=== PATIENT | male | born 1955 | race Caucasian/White ===

== ENCOUNTER → 2017-06-04 | Outpatient (CLI) | payer MEDICARE, OTHER ==
[~2017-06-04] MED LIST: ASPIR 8181 M1 PO; BACLOFEN10 MG PO; BENICAR HCT 401 EAC1 PO; BENZTROPINE ME0.5 MG PO; CREON 241 CAPSULE PO; ENULOSE10 GM/15 M PO; FLONASE16 G1 BOTH NARES; FLOVENT DISKUS1 DIS2 IH; FLUOXETINE HCL10 MG PO; GENTLELAX119 GM PO; GLIMEPIRIDE4 MG PO; JANUVIA25 M1 PO; LANTUS 3 M100 UNITS1 SQ; LIPITOR40 MG PO; LORAZEPAM0.5 MG PO; LOVAZA1 GM PO; LYRICA200 MG PO; MAGNESIUM400 M1 PO; METAMUCIL FIBE3.4 GM PO; METOPROLOL TAR100 MG PO; PRILOSEC20 MG PO; SALINE NASAL SP45 ML BOTH NARES; TESTOSTERO200 MG/11 IM; TOPIRAMATE25 MG PO; ULORIC80 MG PO; VITAMIN D31000 UNIT PO; VOLTAREN 1% GE100 GM PO
== END | disposition home or self-care (01) ==
LOC: CDC 11:54
DX: Z01.810 Encounter for preprocedural cardiovascular examination (principal); M47.27 Other spondylosis with radiculopathy, lumbosacral region; I44.0 Atrioventricular block, first degree; R94.31 Abnormal electrocardiogram [ECG] [EKG]
CPT/HCPCS: 93000

== ENCOUNTER 2017-06-22 15:24 | Inpatient (IN) | payer OTHER ==
[~2017-06-22] VITALS: Ht 188 cm; Wt 125.8 kg
[~2017-06-22 15:24] MED LIST changes: -ASPIR 8181 M1 PO; -BACLOFEN10 MG PO; -BENZTROPINE ME0.5 MG PO; -FLONASE16 G1 BOTH NARES; -GLIMEPIRIDE4 MG PO; -LORAZEPAM0.5 MG PO; -LYRICA200 MG PO; -MAGNESIUM400 M1 PO; -VITAMIN D31000 UNIT PO
[2017-06-22 17:02] LABS: BASOPHIL (%) 0.5 % (0-1); BASOPHIL COUNT 0.1 K/uL (0-0.1); EOSINOPHIL (%) 0.9 % (0-5); EOSINOPHIL COUNT 0.2 K/uL (0-0.3); HEMATOCRIT 44.1 % (38.0-50.0); HEMOGLOBIN 14.9 G/DL (12.5-16.6); IMMATURE GRANULOCYTE (%) 0.7 % (0.0-0.7); LYMPHOCYTE (%) 5.2 % (15-42); MCH 29.9 PG (29.0-34.0); MCHC 33.8 G/DL (30.0-36.0); MCV 88.6 FL (86-99); MONOCYTE (%) 7.8 % (3-12); MONOCYTE COUNT 1.6 K/uL (0-0.8); NEUTROPHIL (%) 84.9 % (45-76); NEUTROPHIL COUNT 16.9 K/uL (1.8-6.4); PLATELET COUNT 150 K/uL (156-360); RBC DIS.WIDTH-SD 44.6 % (39-53); RED BLOOD COUNT 4.98 M/uL (4.00-5.50); WHITE BLOOD COUNT 19.9 K/uL (4.1-10.2)
[2017-06-22 17:12] LABS: ALBUMIN 3.3 g/dL (3.2-4.8); CHLORIDE 99 mEq/L (99-109); POTASSIUM 3.7 mEq/L (3.7-5.4); SODIUM 132 mEq/L (136-147)
[2017-06-22 17:14] LABS: GLUCOSE 117 mg/dL (70-99); TOTAL PROTEIN 6.5 g/dL (6.4-8.3)
[2017-06-22 17:16] LABS: TOTAL BILIRUBIN 2.7 mg/dL (0.0-1.0)
[2017-06-22 17:18] LABS: ALKALINE PHOSPHATASE 115 IU/L (3-129); CREATININE 1.7 mg/dL (0.6-1.3); GFR ESTIMATE (CALCULATED) 44 mL/min/ (58.99-99999)
[2017-06-22 17:19] LABS: UREA NITROGEN (BUN) 14 mg/dL (9-23)
[2017-06-22 17:20] LABS: AST (GOT) 17 IU/L (2-34)
[2017-06-22 17:21] LABS: ALT (GPT) 15 IU/L (3-49)
[2017-06-22] MEDS ORDERED: OMEPRAZOLE20 MG PO (17:54)
[2017-06-22] MEDS ORDERED: LEVOTHYROXINE75 MCG PO (17:54)
[2017-06-22] MEDS ORDERED: BACTRIM,SEPT1 TABLET PO (17:54)
[2017-06-22] MEDS ORDERED: ALLOPURINOL300 MG PO (17:56)
[2017-06-22] MEDS ORDERED: VALSARTAN-HCTZ1 EAC3 PO (17:56)
[2017-06-22] MEDS ORDERED: SOLIQUA 100 UNIT3 ML SC (17:57)
[2017-06-22] MEDS ORDERED: JANUVIA100 MG PO (17:58)
[2017-06-22] MEDS ORDERED: TRAMADOL HCL50 MG PO (18:00)
[2017-06-22] MEDS ORDERED: METOPROLOL SUC100 MG PO (18:02)
[2017-06-22] MEDS ORDERED: ATORVASTATIN CA40 MG PO (18:03)
[2017-06-22] MEDS ORDERED: AMITIZA8 MICROGRA PO (18:05)
[2017-06-22] MEDS ORDERED: OMEGA-3 ACID ETH1 GM PO (18:06)
[2017-06-22] MEDS ORDERED: TESTOSTERO200 MG/12 IM (18:08)
[2017-06-22] MEDS ORDERED: HYDROCODON-ACE1 EAC7 PO (18:10)
[2017-06-22] MEDS ORDERED: MAGNESIUM400 M1 PO (18:15)
[2017-06-22] MEDS ORDERED: ASPIR 8181 M1 PO (18:15)
[2017-06-22] MEDS ORDERED: GLIMEPIRIDE4 MG PO (18:15)
[2017-06-22] MEDS ORDERED: FLONASE16 G1 BOTH NARES (18:16)
[2017-06-22] MEDS ORDERED: BENZTROPINE ME0.5 MG PO (18:16)
[2017-06-22] MEDS ORDERED: BACLOFEN10 MG PO (18:17)
[2017-06-22] MEDS ORDERED: LORAZEPAM0.5 MG PO (18:17)
[2017-06-22] MEDS ORDERED: LYRICA200 MG PO (18:20)
[2017-06-22] MEDS ORDERED: VITAMIN D31000 UNIT PO (18:20)
[2017-06-22 20:20] VITALS: BP 124/71
[2017-06-22 23:58] VITALS: BP 113/64
[2017-06-23 03:44] VITALS: BP 110/60
[2017-06-23 07:22] VITALS: BP 110/64
[2017-06-23 11:59] VITALS: BP 112/65
[2017-06-23 12:24] VITALS: BP 112/65
[2017-06-23 16:32] VITALS: BP 115/62
[2017-06-24] VITALS: BP 144/71
[2017-06-24 00:16] VITALS: BP 144/71
[2017-06-24 07:55] VITALS: BP 122/68
[2017-06-24 15:17] VITALS: BP 110/56
[2017-06-24 22:19] LABS: VANCOMYCIN, TROUGH 29.7 MCG/ML (10-20)
[2017-06-24 22:20] LABS: CREATININE 2.2 MG/DL (0.6-1.3)
[2017-06-24 23:58] VITALS: BP 106/57
[2017-06-25 08:37] VITALS: BP 139/65
[2017-06-25 16:52] VITALS: BP 136/72
[2017-06-26] VITALS: BP 133/75
[2017-06-26 00:21] VITALS: BP 133/75
[2017-06-26 07:50] VITALS: BP 147/71
[2017-06-26 15:24] VITALS: BP 142/82
== END 2017-06-26 16:45 | disposition home or self-care (01) | DRG 863 ==
LOC: EME 15:24 → EDOF 17:07 → 3EAST 17:07 → ENRESERV 17:20 → 3EAST 19:48
PROVIDERS: Neurological Surgery
PROC: 0H96XZZ Drainage of Back Skin, External Approach (ICD-10-PCS; principal; 2017-06-23)
PROC: 02HV33Z Insertion of Infusion Device into Superior Vena Cava, Percutaneous Approach (ICD-10-PCS; principal; 2017-06-23)
DX: T81.4XXA Infection following a procedure, initial encounter (principal); E66.9 Obesity, unspecified; J44.9 Chronic obstructive pulmonary disease, unspecified; F32.9 Major depressive disorder, single episode, unspecified; E78.00 Pure hypercholesterolemia, unspecified; F41.9 Anxiety disorder, unspecified; M10.9 Gout, unspecified; I12.9 Hypertensive chronic kidney disease with stage 1 through stage 4 chronic kidney disease, or unspecified chronic kidney disease; N18.9 Chronic kidney disease, unspecified; E11.22 Type 2 diabetes mellitus with diabetic chronic kidney disease; M54.9 Dorsalgia, unspecified; Z79.4 Long term (current) use of insulin; Z88.8 Allergy status to other drugs, medicaments and biological substances; Z85.528 Personal history of other malignant neoplasm of kidney; A49.01 Methicillin susceptible Staphylococcus aureus infection, unspecified site; Z88.1 Allergy status to other antibiotic agents; Z68.35 Body mass index [BMI] 35.0-35.9, adult; Z80.6 Family history of leukemia; Z82.49 Family history of ischemic heart disease and other diseases of the circulatory system; Z79.82 Long term (current) use of aspirin
CPT/HCPCS: 36415; 76937; 80053; 80202; 81003; 82565; 82948; 83605; 85025; 85025 GA; 85651; 86140; 87040; 87070; 87075; 87077; 87086; 87147; 87186; 87205; 90686; 99281; 99285; J0330; J0690; J0696; J1815; J1885; J2250; J2270; J2405; J3010; J3370; J3480; J7040; J7050; S0032

== ENCOUNTER → 2017-07-09 | Outpatient (CLI) | payer OTHER ==
[~2017-07-09] MED LIST changes: +ALLOPURINOL300 MG PO; +AMITIZA8 MICROGRA PO; +ASPIR 8181 M1 PO; +ATORVASTATIN CA40 MG PO; +BACLOFEN10 MG PO; +BACTRIM,SEPT1 TABLET PO; +BENZTROPINE ME0.5 MG PO; +FLONASE16 G1 BOTH NARES; +GLIMEPIRIDE4 MG PO; +HYDROCODON-ACE1 EAC7 PO; +JANUVIA100 MG PO; +LEVOTHYROXINE75 MCG PO; +LORAZEPAM0.5 MG PO; +LYRICA200 MG PO; +MAGNESIUM400 M1 PO; +METOPROLOL SUC100 MG PO; +OMEGA-3 ACID ETH1 GM PO; +OMEPRAZOLE20 MG PO; +SOLIQUA 100 UNIT3 ML SC; +TESTOSTERO200 MG/12 IM; +TRAMADOL HCL50 MG PO; +VALSARTAN-HCTZ1 EAC3 PO; +VITAMIN D31000 UNIT PO
== END | disposition home or self-care (01) ==
LOC: EEG 10:00
DX: R40.4 Transient alteration of awareness (principal)
CPT/HCPCS: 95819

== ENCOUNTER 2017-07-14 12:16 | Emergency (ER) | payer OTHER ==
[~2017-07-14] VITALS: Ht 188 cm; Wt 125.9 kg
[2017-07-14 14:48] VITALS: BP 149/89
== END 2017-07-14 14:49 | disposition home or self-care (01) ==
LOC: EME 12:16
DX: T81.4XXA Infection following a procedure, initial encounter (principal); A49.8 Other bacterial infections of unspecified site; E11.9 Type 2 diabetes mellitus without complications; E78.5 Hyperlipidemia, unspecified; I10 Essential (primary) hypertension; J45.909 Unspecified asthma, uncomplicated; Z45.2 Encounter for adjustment and management of vascular access device; Z79.4 Long term (current) use of insulin
CPT/HCPCS: 71045; 87070; 87077; 87186; J0696